=== PATIENT | male | born 1985 | race Caucasian/White ===

== ENCOUNTER 2018-12-31 18:58 | Emergency (ER) | payer OTHER ==
[2018-12-31] MEDS ORDERED: Lidocaine 1% 10 ML MDV ONE (19:15)
[2018-12-31] MEDS ORDERED: Cephalexin 500 MG Cap ONE (19:20)
--- NOTE | 2018-12-31 19:36 | EDM.PDOC ---
ED HPI GENERAL MEDICAL PROBLEM - General Chief Complaint: General Stated Complaint: FISH HOOK Time Seen by Provider: 12/31/18 19:15 Source of Information: Reports: Patient History Limitations: Reports: No Limitations - History of Present Illness INITIAL COMMENTS - FREE TEXT/NARRATIVE: This is a 33yo M here for a fish hook of the right medial mid thigh. He was fishing in [place] and got the treble hook caught in his thigh. Onset: Sudden Duration: Constant Location: Reports: Lower Extremity, Right Severity: Mild Improves with: Reports: None Worsens with: Reports: Movement Associated Symptoms: Reports: No Other Symptoms ED ROS GENERAL - Review of Systems Review Of Systems: ROS reveals no pertinent complaints other than HPI. ED EXAM, GENERAL - Physical Exam Exam: See Below Exam Limited By: No Limitations General Appearance: Alert, WD/WN, No Apparent Distress Head: Atraumatic, Normocephalic Neck: Normal Inspection Respiratory/Chest: No Respiratory Distress Cardiovascular: Normal Peripheral Pulses Skin Exam: Other (fish hook of right medial thigh) ED GENERAL MEDICAL PROCEDURES - Additional/Other Procedure(s) Other (Free Text) Procedure(s): Area prepped sterilely and injected 5 mL lidocaine around embedded hook and alyssa. Retracted with 18 ga needle with no complications. Tetanus addressed and injection given by nurse. Departure - Departure Time of Disposition: 19:34 Disposition: Home, Self-Care 01 Condition: Good Clinical Impression: Fish hook injury of right lower leg Qualifiers: Encounter type: initial encounter Qualified Code(s): S89.91XA - Unspecified injury of right lower leg, initial encounter - Discharge Information Instructions: Puncture Wound Referrals: PCP,None [Primary Care Provider] - Forms: ED Department Discharge Additional Instructions: Take Cephalexin one every 12 hours for 10 days. Return to clinic or ER if increased redness, swelling drainage or pain to site. - Problem List & Annotations (1) Fish hook injury of right lower leg SNOMED Code(s): 495217340 Code(s): S89.91XA - UNSPECIFIED INJURY OF RIGHT LOWER LEG, INITIAL ENCOUNTER Status: Resolved Priority: High Qualifiers: Encounter type: initial encounter Qualified Code(s): S89.91XA - Unspecified injury of right lower leg, initial encounter - Problem List Review Problem List Initiated/Reviewed/Updated: Yes - Assessment/Plan Plan: Counseled on supportive care, monitoring for infection and wound care, f/u as needed for further care if any concerns. Patient agrees to f/u if any concerns. Antibiotics prescribed and to be used only as needed. Counseled on use and side effects. F/u as needed.
[2018-12-31] MEDS ORDERED: Diphtheria,Pertussis(Acell),Tetanus Vaccine 0.5 ML SDV inactive IM ONE (20:06)
== END 2018-12-31 19:24 | disposition home or self-care (01) ==
LOC: LB.ED 18:58
DX: S70.351A Superficial foreign body, right thigh, initial encounter (principal); Z23 Encounter for immunization; W45.8XXA Other foreign body or object entering through skin, initial encounter
CPT/HCPCS: 90471; 90715; 99282; A9270; J2001